=== PATIENT | female | born 1990 | race Caucasian/White ===

== ENCOUNTER 2019-06-08 11:34 | Inpatient (IN) | payer MEDICAID ==
[~2019-06-08] VITALS: Ht 157.5 cm; Wt 76.2 kg
[2019-06-08 15:04] VITALS: BP 96/58
[2019-06-08] MEDS ORDERED: no medications (15:12)
[2019-06-08] MEDS: morphine SULFATE 10 MG/ML, 1ML IVPush PRN ×3 (15:59→20:27)
[2019-06-08] MEDS ORDERED: BACLOFEN 10 MG TABLET PO PRN (16:00)
[2019-06-08] MEDS ORDERED: hydrALAzine 20 MG/ML, 1ML IVPush PRN (16:00)
[2019-06-08] MEDS ORDERED: OXYcodone IR 5MG TABLET PO PRN (16:00)
[2019-06-08] MEDS ORDERED: ACETAMINOPHEN 325 MG TABLET PO PRN (16:00)
[2019-06-08] MEDS ORDERED: ONDANSETRON 2MG/ML, 2ML IVPush PRN (16:00)
[2019-06-08] MEDS ORDERED: PROMETHAZINE 25 MG/ML, 1ML IM PRN (16:00)
[2019-06-08] MEDS ORDERED: ONDANSETRON ODT 4 MG PO PRN (16:00)
[2019-06-08] MEDS: NS + 20MEQ KCL 1,000 ML IV SCH (17:08)
[2019-06-08 17:19] LABS: BASOPHILS # (AUTO) 0.04 x10^3/uL (0-0.1); BASOPHILS % (AUTO) 0 % (0-1); EOSINOPHILS # (AUTO) 0.12 x10^3/uL (0-0.4); EOSINOPHILS % (AUTO) 1 % (1-7); LYMPHOCYTES # (AUTO) 0.79 x10^3/uL (1-3.4); LYMPHOCYTES % (AUTO) 8 % (22-44); MD NO; MEAN CORPUSCULAR HEMOGLOBIN 31.2 pg (27.0-34.8); MEAN CORPUSCULAR HGB CONC 33.5 g/dL (32.4-35.8); MEAN CORPUSCULAR VOLUME 93.1 fL (80-100); MEAN PLATELET VOLUME 8.7 fL (7.4-10.4); MONOCYTES # (AUTO) 0.16 x10^3/uL (0.2-0.8); MONOCYTES % (AUTO) 2 % (2-9); NEUTROPHILS # (AUTO) 8.33 x10^3/uL (1.8-6.8); NEUTROPHILS % (AUTO) 88 % (42-75); PLATELET COUNT 249 x10^3/uL (130-400); RED BLOOD COUNT 4.41 x10^6/uL (3.82-5.3); RED CELL DISTRIBUTION WIDTH 13.5 % (9.6-15.2)
[2019-06-08 17:24] LABS: ALANINE AMINOTRANSFERASE 675 U/L (12-78); ALBUMIN 3.3 g/dL (3.4-5.0); ANION GAP 6 mmol/L (5-15); CALCIUM 8.8 mg/dL (8.5-10.1); CHLORIDE 110 mmol/L (98-107); CREATININE 0.74 mg/dL (0.55-1.02)
[2019-06-08 17:27] LABS: ALKALINE PHOSPHATASE 108 U/L (45-117); BILIRUBIN,TOTAL 3.1 mg/dL (0.2-1.0); TOTAL PROTEIN 6.7 g/dL (6.4-8.2)
[2019-06-08] MEDS: KETOROLAC 30 MG/1 ML IV PRN (17:27)
[2019-06-08] MEDS: CEFTRIAXONE PMX 1GM/50ML 50 ML IV SCH (17:49)
[2019-06-08 19:56] VITALS: BP 99/60
[2019-06-09] MEDS: KETOROLAC 30 MG/1 ML IV PRN (01:08)
[2019-06-09 01:33] VITALS: BP 110/62
[2019-06-09] MEDS: NS + 20MEQ KCL 1,000 ML IV SCH ×2 (03:15→15:57)
[2019-06-09 05:24] LABS: BASOPHILS # (AUTO) 0.03 x10^3/uL (0-0.1); BASOPHILS % (AUTO) 0 % (0-1); EOSINOPHILS % (AUTO) 1 % (1-7); LYMPHOCYTES # (AUTO) 2.49 x10^3/uL (1-3.4); LYMPHOCYTES % (AUTO) 28 % (22-44); MD NO; MEAN CORPUSCULAR HEMOGLOBIN 31.3 pg (27.0-34.8); MEAN CORPUSCULAR HGB CONC 33.7 g/dL (32.4-35.8); MEAN CORPUSCULAR VOLUME 92.9 fL (80-100); MEAN PLATELET VOLUME 8.8 fL (7.4-10.4); MONOCYTES % (AUTO) 7 % (2-9); NEUTROPHILS # (AUTO) 5.71 x10^3/uL (1.8-6.8); NEUTROPHILS % (AUTO) 64 % (42-75); PLATELET COUNT 236 x10^3/uL (130-400); RED BLOOD COUNT 4.19 x10^6/uL (3.82-5.3); RED CELL DISTRIBUTION WIDTH 13.4 % (9.6-15.2)
[2019-06-09 05:31] LABS: ANION GAP 6 mmol/L (5-15); CALCIUM 8.3 mg/dL (8.5-10.1); CHLORIDE 106 mmol/L (98-107)
[2019-06-09 05:35] LABS: ALANINE AMINOTRANSFERASE 584 U/L (12-78); ALKALINE PHOSPHATASE 114 U/L (45-117); BILIRUBIN,TOTAL 4.5 mg/dL (0.2-1.0); TOTAL PROTEIN 5.9 g/dL (6.4-8.2)
[2019-06-09 05:38] LABS: INTERNATIONAL NORMALIZED RATIO 1.22 (0.93-1.1); PROTHROMBIN TIME 12.7 Seconds (9.6-11.5)
[2019-06-09 07:09] VITALS: BP 104/67
[2019-06-09] MEDS: morphine SULFATE 10 MG/ML, 1ML IVPush PRN (10:13)
[2019-06-09] MEDS ORDERED: FENTANYL PF 250 MCG/5ML ONE (11:39)
[2019-06-09] MEDS ORDERED: MIDAZOLAM 1 MG/ML, 2ML ONE (11:39)
[2019-06-09] MEDS ORDERED: NEOSTIGMINE 1 MG/ML, 10ML ONE (11:42)
[2019-06-09] MEDS ORDERED: PROPOFOL 10 MG/ML, 20ML ONE (11:42)
[2019-06-09] MEDS ORDERED: GLYCOPYRROLATE 0.2MG/1ML, 5ML ONE (11:42)
[2019-06-09] MEDS ORDERED: DEXAMETHASONE 4 MG/ML, 1ML ONE (11:42)
[2019-06-09] MEDS ORDERED: ONDANSETRON 2MG/ML, 2ML ONE (11:42)
[2019-06-09] MEDS ORDERED: ROCURONIUM 10MG/ML,5ML ONE (11:42)
[2019-06-09] MEDS ORDERED: PROMETHAZINE 25 MG/ML, 1ML IV PRN (12:00)
[2019-06-09] MEDS ORDERED: MEPERIDINE/PF 25MG/ML,1ML IVPush PRN (12:00)
[2019-06-09] MEDS ORDERED: OXYcodone 5 MG/5 ML ORAL.SOL UDC PO PRN (12:00)
[2019-06-09] MEDS ORDERED: FENTANYL PF 100 MCG/2ML IV PRN (12:00)
[2019-06-09] MEDS ORDERED: LABETALOL 5MG/ML, 20ML IV PRN (12:00)
[2019-06-09] MEDS ORDERED: MORPHINE SULFATE 4 MG/ML, 1ML IVPush PRN (12:00)
[2019-06-09] MEDS ORDERED: HALOPERIDOL 5 MG/ML IV PRN (12:00)
[2019-06-09] MEDS ORDERED: hydrALAzine 20 MG/ML, 1ML IV PRN (12:00)
[2019-06-09] MEDS ORDERED: HYDROmorphone 2 MG/ML, 1ML IVPush PRN (12:00)
[2019-06-09] MEDS ORDERED: ACETAMINOPHEN 325 MG TABLET PO PRN (12:00)
[2019-06-09] MEDS ORDERED: INDOMETHACIN 50 MG SUPP.RECT ONE (13:12)
[2019-06-09] MEDS ORDERED: OMNIPAQUE 350 MG/ML, 50 ML BOTTLE ONE (13:20)
[2019-06-09] MEDS ORDERED: LACTATED RINGERS 1,000 ML IV SCH (14:30)
[2019-06-09 14:35] VITALS: BP 106/72
[2019-06-09] MEDS ORDERED: CEFTRIAXONE PMX 1GM/50ML 50 ML IV SCH (16:00)
[2019-06-09] MEDS: CEFTRIAXONE PMX 1GM/50ML 50 ML IV SCH (17:51)
[2019-06-09 19:13] VITALS: BP 106/66
[2019-06-09 23:14] VITALS: BP 109/71
[2019-06-10 02:35] VITALS: BP 97/59
[2019-06-10] MEDS: NS + 20MEQ KCL 1,000 ML IV SCH ×2 (03:30→14:00)
[2019-06-10 07:52] VITALS: BP 107/66
[2019-06-10] MEDS ORDERED: AMOXICILLIN/CLAV 875-125MG TABLET PO SCH (09:00)
[2019-06-10 09:55] LABS: ALANINE AMINOTRANSFERASE 487 U/L (12-78); ALBUMIN 3.4 g/dL (3.4-5.0); ANION GAP 7 mmol/L (5-15); CALCIUM 8.5 mg/dL (8.5-10.1); CHLORIDE 106 mmol/L (98-107); CREATININE 0.75 mg/dL (0.55-1.02)
[2019-06-10 09:58] LABS: ALKALINE PHOSPHATASE 160 U/L (45-117); TOTAL PROTEIN 7.1 g/dL (6.4-8.2)
[2019-06-10] MEDS ORDERED: AMOX1TAB12 PO (10:25)
[2019-06-10] MEDS ORDERED: ONDA4TAB13 PO (10:25)
[2019-06-10 13:19] VITALS: BP 103/62
== END 2019-06-10 15:00 | disposition home or self-care (01) ==
LOC: 4NE 15:01 → DCLOUNGE 06-10 14:48
PROVIDERS: ADMIT Internal Medicine; ATTEND Internal Medicine Gastroenterology
PROC: BF111ZZ Fluoroscopy of Biliary and Pancreatic Ducts using Low Osmolar Contrast (ICD-10-PCS; 2019-06-09)
PROC: 0F7D8DZ Dilation of Pancreatic Duct with Intraluminal Device, Via Natural or Artificial Opening Endoscopic (ICD-10-PCS; 2019-06-09)
PROC: 0FC98ZZ Extirpation of Matter from Common Bile Duct, Via Natural or Artificial Opening Endoscopic (ICD-10-PCS; principal; 2019-06-09 12:30)
DX: K80.50 Calculus of bile duct without cholangitis or cholecystitis without obstruction (principal); K59.00 Constipation, unspecified; Z90.49 Acquired absence of other specified parts of digestive tract
CPT/HCPCS: 36415; 74181; 74330; 80053; 81025; 83690; 85025; 85610; 93005; G0378; J0696; J1100; J1885; J2250; J2405; J2704; J2710; J3010; J3480; Q9967; C1769; C2625; J2270